=== PATIENT | male | born 1960 | race African-American/Black ===

== ENCOUNTER 2016-10-10 11:37 | Day surgery (SDC) | payer OTHER ==
[~2016-10-10] VITALS: Ht 175.3 cm; Wt 76.0 kg
[2016-10-10 12:30] VITALS: BP 179/104; PULSE 57; RESP 16; TEMP 98.4; O2SAT 97
[2016-10-10] MEDS ORDERED: LEXA10TA PO (12:54)
[2016-10-10] MEDS ORDERED: BUSP15TA PO (12:54)
[2016-10-10] MEDS ORDERED: HYDR12.57 PO (12:54)
[2016-10-10] MEDS ORDERED: VIAG50TA PO (12:54)
[2016-10-10] MEDS ORDERED: AMBI5TAB PO (12:54)
[2016-10-10] MEDS ORDERED: ATOR40TA16 PO (12:54)
[2016-10-10] MEDS ORDERED: ASPI81CH CHEW (12:54)
[2016-10-10] MEDS ORDERED: METO25TA3 PO (12:54)
[2016-10-10] MEDS ORDERED: LISI-515 PO (12:54)
[2016-10-10] MEDS ORDERED: POVIDONE IODINE 5% (ANTISEPSIS KIT) 4 APPLICATIONS EACH NARE PRN (13:00)
[2016-10-10] MEDS ORDERED: ceFAZolin 2 GM PREMIX 50 ML IV SCH (13:00)
[2016-10-10] MEDS ORDERED: POVIDONE IODINE 5% (ANTISEPSIS KIT) 4 APPLICATIONS EACH NARE SCH (13:00)
[2016-10-10] MEDS ORDERED: LACTATED RINGER'S 1000 ML IV PRN (13:00)
[2016-10-10] MEDS ORDERED: SODIUM CHLORID 0.9% 500 ML IV PRN (13:00)
[2016-10-10] MEDS ORDERED: NS 1000 ML IV SCH (13:00)
[2016-10-10] MEDS ORDERED: CHLORHEXIDINE GLUCONATE 2 % 1 PACK (2 CLOTHS) TOPICAL PRN (13:00)
[2016-10-10] MEDS ORDERED: LORazepam 1 MG TAB SL SCH (13:00)
[2016-10-10] MEDS ORDERED: METOPROLOL TARTRATE 25 MG TAB PO PRN (13:00)
[2016-10-10] MEDS ORDERED: MUPIROCIN 2% OINT 1 APPLIC/GM SYR NASAL SCH (13:00)
[2016-10-10] MEDS ORDERED: CHLORHEXIDINE GLUCONATE 2 % 1 PACK (2 CLOTHS) TOPICAL SCH (13:00)
[2016-10-10] MEDS ORDERED: VANCOMYCIN 1000 MG/NS 250 ML IV SCH ×2 (13:00)
[2016-10-10] MEDS ORDERED: INSULIN HUMAN REGULAR 1,000 UNITS/10 ML VIAL SQ PRN (13:00)
[2016-10-10 13:13] LABS: AUTOMATED NEUTROPHIL # 4.2 TH/MM3 (1.8-7.7); BASOPHIL # 0.1 TH/MM3 (0-0.2); BASOPHIL % 0.7 % (0.0-2.0); EOSINOPHIL # 0.2 TH/MM3 (0-0.4); EOSINOPHIL % 2.6 % (0.0-4.0); HEMATOCRIT 39.4 % (39.0-51.0); HEMO FLAGS DIFF FINAL; LYMPH % 34.9 % (9.0-44.0); LYMPHOCYTE # 2.7 TH/MM3 (1.0-4.8); MEAN CELL VOLUME 90.2 FL (80.0-100.0); MEAN CORPUSCULAR HGB CONC 32.1 % (32.0-36.0); MONO % 6.4 % (0.0-8.0); NEUT % 55.4 % (16.0-70.0); PLATELET COUNT 273 TH/MM3 (150-450); RED BLOOD COUNT 4.37 MIL/MM3 (4.50-5.90); RED CELL DISTRIBUTION WIDTH 14.4 % (11.6-17.2); WHITE BLOOD COUNT 7.6 TH/MM3 (4.0-11.0)
[2016-10-10 13:32] LABS: APTT (PATIENT) 31.5 SEC (24.3-30.1); PROTHROMBIN TIME - PATIENT 10.8 SEC (9.8-11.6)
[2016-10-10 13:33] LABS: POTASSIUM 4.2 MEQ/L (3.5-5.1)
[2016-10-10] MEDS ORDERED: MIDAZOLAM HCL 2 MG/2 ML VIAL ONE (19:10)
[2016-10-10] MEDS ORDERED: IODIXANOL 320 MG/ML 50 ML VIAL (for EPS) IV ONE (19:25)
[2016-10-10] MEDS ORDERED: VANCOMYCIN 500 MG VIAL ONE (19:27)
[2016-10-10] MEDS ORDERED: LIDOCAINE HCL 2% 50 ML VIAL ONE (19:28)
--- NOTE | 2016-10-10 20:50 | CATHPROC ---
[facility] HIS Report Study Information Study Number Admission Scheduled Start Study Start [id number] Oct 10 2016 11:37AM 10/10/2016 Oct 10 2016 7:26PM [place] [facility] Cardiac Pacer/ICD Admit Source Facility Department Other [facility] - Associate Professor Of Physics Physician and Clinical Staff Initial Frantz Brooks Per Diem Rn Eunice Dominguez RCIS Other Anesthesia, SMALL ANIMAL CARETAKER Recorder Hilaria Arce BSRPastor ScrAz Ventura,RT(R) Procedures Performed Procedure Location (Site) Vessel Name Lead Insertion Venogram Subclav. Vein (Lft Subclavian Vein Wire insertion Subclav. Vein (Lft Subclavian Vein Equipment Time Quality Head Description Size Mfg Part Number Used/Scraped documistic 20:25 SHEATH, FR8 11CM FR 8 11CM [id number] Used INC. 20:28 BIOTRONIK LEAD, LINOX SMART S DX 65/15 * [id number] Used WIRE, GUIDE AMPLATZ STIFF [id number] 20:22 COOK/PACER 3MMJ Used 180CM *[id number] DERMABOND, ADHESIVE SKIN [id number] 19:40 CORDIS/PACER * Used GLUE MINI *[id number] WIRE, HYDROSTEER 150CM [id number] 20:05 DAIG/[facility] 150CM Used ANGLED GLIDE *[id number] ENDOVASCULAR CATHETER, FR5 TRAILBLAZER [id number] 20:15 90CM Used COMPANY .035 *[id number]-1103 19:40 MEDLINE INDUSTRIES SUTURE, STRIP PLUS 1/2" * Used *[id number] 19:40 MEDLINE PACER ABREU, LIMB * 2530 *[id number] Used [id number] 19:40 MEDLINE PACER PACK, PACER CUSTOM * Used *[id number] QC7560 20:12 [employer]RU 30 SHAHEEN INDEFLATOR Used *[id number] 20:25 [employer].RU PACER SAFE SHEATH, LONG, FR8, 25CM FR 8 [id number] Used 20:41 Needle Sponge Count 2 22 Used 20:45 Needle Sponge Count 2 22 Used 19:50 Needle Sponge Count 2 22 Used 19:50 Needle Sponge Count 20 200 Used 20:45 Needle Sponge Count 20 200 Used 20:41 Needle Sponge Count 20 200 Used 20:40 Needle Sponge Count 3 3 Used 19:49 Needle Sponge Count 3 3 Used 20:42 Needle Sponge Count 4 4 Used 20:45 Needle Sponge Count 4 4 Used 20:48 NYCOMED OMNIPAQUE, 350 MG, 50ML 50ML [id number] Used SUTURE, 0 ETHIBOND [CT1] (CX21D), 8pk SUTURE, 2-0 VICRYL [CT1] ([id number]) SUTURE, 2-0 VICRYL [CT1] (HKH569A) [id number] 19:40 PAINTER MEDICAL BLANKET,WARM AIR CCL * Used *[id number] 138699 20:05 [facility] SHEATH, EPS, FR5 FAST CATH FR 5 Used *[id number] [facility] PAD, ELECTROSURGICAL 19:40 * [id number] *[id number] Used SURGICAL GROUNDING ORANGE 19:54 VITATRON MEDTRONIC PLASMABLADE, PEAD 3.0S * [id number] Used [id number] 19:40 Infer FABIENNE. ELECTRODE, PRO-PADZ BIPHASIC * Used *[id number] Equipment Model, Serial, Lot Number and Expiration Data Description Model Number Serial Number Lot Number Expiration Date LEAD, LINOX SMART S DX 65/15 [id number] 07-05-2018 History: Allergies Allergy Reaction NKDA History: Risk Factors Hypertension Dyslipidemia Previous Heart Failure Yes Yes Yes History: Symptoms/Diagnosis Selection Items Palpitations Labs Hgb (g/dl) Hct (%) RBC (MIL/MM3) WBC (l/cumm) Platelets (thousands) 11.60-17.00 35.00-51.00 4.00-5.90 4.00-11.00 150.00-450.00 12.7 39.4 4.3 7.6 273 Glucose (mg/dl) BUN (mg/dl) Creatinine (mg/dl) BUN:Creatinine (1:x) 74.00-106.00 7.00-18.00 0.50-1.30 10.00-20.00 80 15 1.3 11.5 Na (meq/l) K (meq/l) 136.00-145.00 3.50-5.10 141 4.2 INR (PTT:PT) 0.90-1.10 1 Medication Medication Total Dose (Bolus/Oral) Medication Total Dosage/Unit 2% XYLOCAINE 50 mL Medications (Bolus/Oral) Medication Time Given Dosage/Unit Administered By Reason 2% XYLOCAINE 10/10/2016 7:55:27 PM 50 mL Anesthesia, SMALL ANIMAL CARETAKER As per physicians chelly bal order 50 mL 2% XYLOCAINE given in lab by Anesthesia, SMALL ANIMAL CARETAKER via Subcutaneous. Ordered by Frantz Moran. Reaso n: As per physicians verbal order. left upper chest Medication (Drip) Medication Time Given Dosage/Unit Concentration/Unit Diluent (ml) Solution ANCEF 10/10/2016 7:30:00 PM 2 g 2 g ANCEF given in lab by Anesthesia, SMALL ANIMAL CARETAKER in Right Forearm via Peripheral IV. Ordered by Neto Moran. Reason: As per physicians verbal order. IV Solutions 10/10/2016 7:41:31 PM 0 mL (IV) NaCl .9 IV Solutions given in lab by Anesthesia, SMALL ANIMAL CARETAKER in Left Forearm via Peripheral IV. Pump/Drip Flow = 50 ml/hr using NaCl .9. Ordered by Frantz Moran. Reason: As per physicians verbal order. IV Solutions 10/10/2016 7:41:59 PM 0 mL (IV) NaCl .9 IV Solutions given in lab by Anesthesia, SMALL ANIMAL CARETAKER in Left Forearm via Peripheral IV. Pump/Drip Flow = 50 ml/hr using NaCl .9. Ordered by Frantz Moran. Reason: As per physicians verbal order. VANCOMYCIN DRIP 10/10/2016 7:30:05 PM 1 g 1 g VANCOMYCIN DRIP given in lab by Anesthesia, SMALL ANIMAL CARETAKER in Right Forearm via Peripheral IV. Ordered by Frantz Daniels. Reason: As per physicians verbal order. Initial Case Assessment Cardiovascular HR NIBP Chest Pain 54 150/91 0 Edema Present Skin color Skin None Normal Warm Dry Neurological State Oriented to time-place- Alert Moves all extremities person Respiration - General Respiration Rate SpO2 (%) (B/min) 18 97 Final Case Assessment Cardiovascular HR NIBP 64 121/78 Edema Present Skin color Skin None Normal Warm Dry Neurological State Oriented to time-place- Alert Moves all extremities person Respiration - General Respiration Rate SpO2 (%) (B/min) 18 99 Chronological Log Time Study Chronological Log 19:25:42 Patient arrived via Bed. 19:25:44 Patient Name, D.O.B, / Armband Verified By R.N. 19:25:46 Consent signed by the physician and the patient and verified by the Associate Professor Of Physics staff. 19:25:47 Pre-op and post- op instructions given; patient acknowledges understanding of instruction s. 2 g ANCEF given in lab by Anesthesia, SMALL ANIMAL CARETAKER in Right Forearm via Peripheral IV. Ordered by Frantz Moran. Reason: As 19:30:00 per physicians verbal order. 1 g VANCOMYCIN DRIP given in lab by Anesthesia, SMALL ANIMAL CARETAKER in Right Forearm via Peripheral IV. Ordere d by Frantz Moran. 19:30:05 Reason: As per physicians verbal order. 19:34:51 Verbal Stimulation=2 Physical Stimulation=2 Airway=2 Respiration=2 TOTAL=10. (0=absent, 1=l imited, 2=present) 19:40:09 Anesthesia at bedside. Assumes care of patient. Alexandrea SMALL ANIMAL CARETAKER 19:40:20 Presedation assessment performed by Associate Professor Of Physics RN. 19:40:22 Patient has been NPO for More than 6Hrs. 19:40:24 Skin Breakdown- none 19:40:30 Patient Warmer Placed on the Table. 19:40:32 Disposable Defibrillator Pads Placed On Patient. 19:40:36 Sarah Prominences Protected 19:40:39 A # 20 IV was noted in the Forearm (left). Grade = ~GRADE~ 19:40:56 A # 20 IV was noted in the Forearm (right). Grade = ~GRADE~ IV Solutions given in lab by Anesthesia, SMALL ANIMAL CARETAKER in Left Forearm via Peripheral IV. Pump/Drip Flow = 50 ml/hr using NaCl 19:41:31 .9. Ordered by Frantz Moran. Reason: As per physicians verbal order. IV Solutions given in lab by Anesthesia, SMALL ANIMAL CARETAKER in Left Forearm via Peripheral IV. Pump/Drip Flow = 50 ml/hr using NaCl 19:41:59 .9. Ordered by Frantz Moran. Reason: As per physicians verbal order. 19:42:20 History and physical on the chart or being dictated. Assessment: Initial Case, HR=54 BPM, SUSN=342/91 mmhg, Chest Pain=0, Edema=None, Color=Normal, Skin = Warm, Dry 19:42:50 Neurological: State=Alert, Ox3, HOFF Respiration: Resp=18 B/min, SpO2=97 % 19:43:25 Table restraints applied according to hospital policy 19:43:27 Left Upper Chest Prepped Times Two. 19:43:39 Bovie ground pad applied to: right hip 19:43:47 2% CHLORHEXIDINE GLUCONATE WASH AND NASAL SWIPE DONE PRIOR TO PROCEDURE. First Sponge And Instrument Count Done by Eunice Dominguez RCIS. 19:48:37 Hypo's: 3, Sponges: 20, Bovie/scratch: 2 Sutures: 11, Blades: 1, Instruments: 26, Syveck Patches: ~SYVECK PATCH~ 19:49:00 Immediate Presedation assesment performed by physician. Time Out. Correct patient, procedure, procedure equipment, site and side verified with physicia n present. Time 19:50:00 concurred by MD, individual staff and SMALL ANIMAL CARETAKER. Time Out #2 - Consents verified, patient in correct position, all results are labled and displa yed, safety precautions 19:50:00 taken, antibiotics administered. Time out concurred by MD, individual staff and SMALL ANIMAL CARETAKER in procedu re 19:50:10 Case Start 50 mL 2% XYLOCAINE given in lab by Anesthesia, SMALL ANIMAL CARETAKER via Subcutaneous. Ordered by Frantz Moran. Reason: As per 19:55:27 physicians verbal order. left upper chest 19:56:17 Surgical Incision Made. 19:56:51 A device was explanted. 20:00:34 Vascular access was obtained in the Subclav. Vein (Lft. 20:10:00 The Subclav. Vein (Lft was manually injected with 10 cc's of contrast. OMNIPAQUE, 350 MG, 5 0ML 50ML used. 20:15:15 A CATHETER, FR5 TRAILBLAZER .035 90CM was advanced over a wire. contrast was used for injec tions. 20:18:18 [place] catheter removed. 20:21:59 Trailblazer removed. 20:22:40 Reference ECG taken 20:23:20 A WIRE, GUIDE AMPLATZ STIFF 180CM 3MMJ was inserted via Subclav. Vein (Lft. 20:25:32 A SAFE SHEATH, LONG, FR8, 25CM FR 8 was advanced into the Subclav. Vein (Lft using the Perc utaneous technique. 20:29:10 A LEAD, LINOX SMART S DX 65/15 * was inserted and positioned in the RV. 20:29:21 Lead placement verified under fluoroscopy 20:29:24 The RV lead impedance and threshold being tested. 20:29:27 The RV lead was sutured to the fascia. 20:29:37 Old lead capped. 20:36:53 Reconnecting device. 20:37:25 Pocket flushed with antibiotic solution Second Sponge And Instrument Count Done by Eunice Dominguez RCIS. 20:39:58 Hypo's: 4, Sponges: 20, Bovie/scratch: 2 Sutures: ~SUTURE~, Blades: 1, Instruments: ~INSTRU~, Syveck Patches: ~SYVECK PATCH~ 20:40:00 The pocket was closed. 20:41:03 Implant Procedure was performed. 20:41:13 A ICD Implant . (Dual) new defib lead placed. 20:43:53 Bedside Report will be given. 20:44:02 Steri-strips and a sterile dressing applied to site. The Final Sponge And Instrument Count Done by Eunice Dominguez RCIS. 20:44:40 Hypo's: 4, Sponges: 20, Bovie/scratch: 2 Sutures: 11, Blades: 1, Instruments: 26, Syveck Patches: 0 20:45:12 A sling was placed on the affected arm. Assessment: Final Case, HR=64 BPM, XHIN=612/78 mmhg, Edema=None, Color=Normal, Skin = Warm, Dry 20:45:21 Neurological: State=Alert, Ox3, HOFF Respiration: Resp=18 B/min, SpO2=99 % 20:46:07 No case complications noted. 20:46:14 Cine recording checked. 20:46:23 Holding Area notified of successful intervention. 20:46:33 Contrast Scanned 20:46:34 Defibrillator and ground pads removed. Skin intact. 20:49:14 A sling was placed on the affected arm. 20:49:38 Case End 21:00:00 Patient moved to [facility] and transported to [facility] in stable condition. End Study - Contrast Media Used In Study Contrast Total Opened (mL) Total Used (mL) Total Wasted (mL) Omnipaque 50 10 40 End Study - Maximum Contrast Load Max Contrast Load (mL) 294.6 End Study - Radiation Exposure Fluoro Time (minutes) 13.1 End Study - Patient Disposition Complications Transferred To Interventional Outcome No Telemetry Bed successful
[2016-10-10] MEDS ORDERED: ONDANSETRON HCL 4 MG/2 ML VIAL IV PRN (21:00)
[2016-10-10] MEDS ORDERED: TEMAZEPAM 15 MG CAP PO PRN (21:00)
[2016-10-10] MEDS ORDERED: MAGNESIUM HYDROXIDE SUSP 30 ML CUP PO PRN (21:00)
[2016-10-10] MEDS ORDERED: ATORVASTATIN 40 MG TAB PO SCH (21:00)
[2016-10-10] MEDS ORDERED: ACETAMINOPHEN/CODEINE 300 MG/30 MG TAB PO PRN (21:00)
[2016-10-10 21:33] VITALS: BP 155/99; PULSE 55; RESP 18; TEMP 97.2; O2SAT 99
[2016-10-10 22:00] VITALS: PULSE 56
[2016-10-10] MEDS: ACETAMINOPHEN/CODEINE 300 MG/30 MG TAB PO PRN (22:10)
[2016-10-10] MEDS: busPIRone HCL 5 MG TAB PO SCH (22:10)
--- NOTE | 2016-10-10 22:32 | RADRPT ---
EXAM DATE/TIME: 10/10/2016 21:48 [place] COMPARISON: No previous studies available for comparison. INDICATIONS : Post pacemaker placement. MEDICAL HISTORY : None. SURGICAL HISTORY : Pacemaker. ENCOUNTER: Initial ACUITY: 1 day PAIN SCORE: 0/10 LOCATION: Bilateral chest FINDINGS: A single view of the chest demonstrates the lungs to be symmetrically aerated without evidence of mas s, infiltrate or effusion. No pneumothorax. Pacer leads overlie right ventricle. The cardiomediastina l contours are mildly prominent. Osseous structures are intact. CONCLUSION: 1. Pacer leads overlie right ventricle. Tortuous aorta. No focal consolidation or effusion. No pneumo thorax. Cody Sidhu MD on October 10, 2016 at 22:30 Board Certified Radiologist. This report was verified electronically.
[2016-10-10 23:00] VITALS: PULSE 57
[2016-10-10] MEDS: ceFAZolin 2 GM PREMIX 50 ML IV SCH (23:07)
[2016-10-10 23:30] VITALS: BP 148/89; PULSE 50; RESP 12; TEMP 97.6; O2SAT 97
[2016-10-11] VITALS (11 sets, daily range): BP systolic 134–145; BP diastolic 82–96; PULSE 54–77; RESP 14–18; TEMP 97.9–98.1; O2SAT 96–98
[2016-10-11] MEDS: ACETAMINOPHEN/CODEINE 300 MG/30 MG TAB PO PRN ×2 (02:35→08:21)
[2016-10-11] MEDS: busPIRone HCL 5 MG TAB PO SCH (08:20)
[2016-10-11] MEDS: ceFAZolin 2 GM PREMIX 50 ML IV SCH (08:21)
[2016-10-11] MEDS ORDERED: METOPROLOL TARTRATE 25 MG TAB PO SCH (09:00)
[2016-10-11] MEDS ORDERED: ASPIRIN 81 MG CHEW TAB CHEW SCH (09:00)
[2016-10-11] MEDS ORDERED: ESCITALOPRAM OXALATE 10 MG TAB PO SCH (09:00)
[2016-10-11] MEDS ORDERED: LISINOPRIL 20 MG TAB PO SCH (09:00)
[2016-10-11] MEDS ORDERED: HYDROCHLOROTHIAZIDE 12.5 MG CAP PO SCH (09:00)
--- NOTE | 2016-10-11 09:50 | HHI.PR ---
Subjective Remarks Feeling ok Objective Vital Signs Date Time Temp Pulse Resp B/P (MAP) Pulse Ox O2 Delivery O2 Flow Rate FiO2 10/11/16 09:30 18 10/11/16 09:29 77 10/11/16 08:00 66 10/11/16 07:35 98.1 56 18 145/96 (112) 98 10/11/16 07:35 56 10/11/16 06:00 54 10/11/16 05:00 56 10/11/16 04:00 56 10/11/16 03:00 97.9 58 14 134/82 (99) 96 10/11/16 03:00 58 10/11/16 02:00 64 10/11/16 01:00 62 10/11/16 00:00 54 10/10/16 23:30 97.6 50 12 148/89 (108) 97 10/10/16 23:00 57 10/10/16 22:00 56 10/10/16 21:33 97.2 55 18 155/99 (117) 99 10/10/16 12:30 98.4 57 16 179/104 (129) 97 I/O 10/10/16 10/10/16 10/10/16 10/11/16 10/11/16 10/11/16 07:00 15:00 23:00 07:00 15:00 23:00 Intake Total 830 ml Output Total 525 ml Balance 305 ml Intake Oral 480 ml IV Total 350 ml Output Urine Total 525 ml Result Diagram: 10/10/16 1230 10/10/16 1230 Imaging Alert, fully oriented Lungs: ventilated Heart: S1, S2 regular Clean surgical wound Abdomen: soft, no mass Ext: no edema Last Impressions Chest X-Ray 10/10/16 0000 Signed Impressions: Service Date/Time: Monday, October 10, 2016 21:48 - CONCLUSION: 1. Pacer leads overlie right ventricle. Tortuous aorta. No focal consolidation or effusion. No pneumothorax. Cody Sidhu MD Current Medications Medications (Trade) Dose Ordered Sig/Eduardo Route Start Time Stop Time Status Last Admin Lactated Ringer's 1,000 ml @ 30 mls/hr Q24H PRN IV 10/10/16 13:00 10/13/16 12:59 Sodium Chloride 500 ml @ 30 mls/hr [id number] PRN IV 10/10/16 13:00 10/13/16 12:59 (Lopressor) 25 mg EMAIL SPECIALIST PRN PO 10/10/16 13:00 10/13/16 12:59 (Betadine 5% Antisepsis Kit) 1 applic EMAIL SPECIALIST PRN EACH NARE 10/10/16 13:00 10/13/16 12:59 (Chlorhexidine 2% Cloth) 3 pack EMAIL SPECIALIST PRN TOPICAL 10/10/16 13:00 10/13/16 12:59 (NovoLIN R INJ) See Protocol Table ... EMAIL SPECIALIST PRN SQ 10/10/16 13:00 10/13/16 12:59 Sodium Chloride 1,000 ml @ 30 mls/hr Q24H IV 10/10/16 13:00 (Ativan) 1 mg EMAIL SPECIALIST SL 10/10/16 13:00 10/13/16 12:59 (Betadine 5% Antisepsis Kit) 2 applic EMAIL SPECIALIST EACH NARE 10/10/16 13:00 10/13/16 12:59 (Bactroban Nasal 2% Oint) 1 applic EMAIL SPECIALIST NASAL 10/10/16 13:00 10/13/16 12:59 (Chlorhexidine 2% Cloth) 3 pack EMAIL SPECIALIST TOPICAL 10/10/16 13:00 10/13/16 12:59 Cefazolin Sodium/ Dextrose 50 ml @ 100 mls/hr Q8H IV 10/11/16 00:00 10/11/16 16:29 10/11/16 08:21 (Restoril) 15 mg HS PRN PO 10/10/16 21:00 10/10/16 23:08 (Milk Of Magnesia Liq) 30 ml Q6H PRN PO 10/10/16 21:00 (Zofran Inj) 4 mg Q4H PRN IV 10/10/16 21:00 (Tylenol-Codeine #3) 1 tab Q4H PRN PO 10/10/16 21:00 (Tylenol-Codeine #3) 2 tab Q4H PRN PO 10/10/16 21:00 10/11/16 08:21 (Aspirin Chew) 81 mg DAILY CHEW 10/11/16 09:00 10/11/16 08:20 (Lipitor) 40 mg HS PO 10/10/16 21:00 10/10/16 22:09 (Buspar) 15 mg BID PO 10/10/16 21:00 10/11/16 08:20 (Lexapro) 10 mg DAILY PO 10/11/16 09:00 10/11/16 08:19 (Microzide) 12.5 mg DAILY PO 10/11/16 09:00 10/11/16 08:19 (Prinivil) 20 mg DAILY PO 10/11/16 09:00 10/11/16 08:20 (Lopressor) 25 mg DAILY PO 10/11/16 09:00 10/11/16 08:20 Assessment and Plan Problem List: (1) Ventricular tachyarrhythmia ICD Codes: I47.2 - Ventricular tachycardia Plan: No new episode reported (2) ICD (implantable cardioverter-defibrillator) in place ICD Codes: Z95.810 - Presence of automatic (implantable) cardiac defibrillator Plan: Device well functioning Clean surgical wound New Defib lead Can be DH Follow up as scheduled Frantz Moran MD Oct 11, 2016 09:50
[2016-10-11] MEDS ORDERED: CEPH-460 PO (09:56)
[2016-10-11] MEDS ORDERED: HYDR-3366 PO (09:56)
--- NOTE | 2016-10-11 14:30 | EKG ---
Date Performed: 10/10/2016 Time Performed: 13:11:50 PTAGE: 55 years EKG: Sinus bradycardia. Septal ST-T changes are nonspecific Borderline ECG NO PREVIOUS TRACING DOCTOR: Gabe Hernandez Interpretating Date/Time 10/11/2016 14:29:25
--- NOTE | 2016-10-11 18:02 | EKG ---
Date Performed: 10/10/2016 Time Performed: 22:44:40 PTAGE: 55 years EKG: Sinus bradycardia leading into accelarated idioventricular rhythm. Prolonged QT interval Co mpared to previous tracing accelerated idioventricular rhythm Borderline ECG PREVIOUS TRACING : 10/10/2016 13.11 DOCTOR: Gabe Hernandez Interpretating Date/Time 10/11/2016 18:00:51
--- NOTE | 2016-10-15 17:22 | MP ---
cc: CAROLA PAINTER M.D. DATE OF SURGERY PROCEDURE 1. Defibrillator removal. 2. New right ventricular defibrillatory lead insertion. INDICATION Mr. Roldan is a 55-year-old, -Maced[place] gentleman. history of sudden , normal ejection fraction, ___ defibrillator implanted, right ventricular lead malfunction. There is no capture and sensing in the right ventricular pacing sensing defibrillatory lead. Decision for new RV defibrillatory replacement was taken. The risks, the nature and the benefit of the procedure are clearly stated to him. The risks include pneumothorax, cardiac perforation, stroke and even . He understood and agreed to proceed. DESCRIPTION OF PROCEDURE After written informed consent was obtained, the patient was brought to the EP lab where he was prepped and draped in the usual sterile fashion. Conscious sedation was initiated and maintained throughout the procedure by anesthesiologist. Once sedation verified, the left infraclavicular area over the existing generator was anesthetized with 2% Xylocaine. Using a #11 blade scalpel, a 3-cm incision was made over the existing generator. This incision was then taken down to the fascial layer using Bovie cautery and blunt dissection. Once exposed, the generator was removed from the pocket. Scar tissue was removed around the lead, pocket was expanded. Pocket revision was performed. Then using modified Seldinger technique, the left subclavian vein was cannulated on one occasion, one guidewire was advanced. I was unable to advance the guidewire through the medial portion of the left subclavian vein. At this point, I did advance a 5-Belarusian dilator over the wire. A Glidewire was advanced. I was unable to cross. At this point, I proceeded with venography. 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 At this point, I did advance a Quick-cross over the Glidewire. After multiple manipulation of the Glidewire, I was able to cross the occlusion. Subsequently, the Quick-cross was advanced, all the way through the inferior vena cava. Over the Quick-cross, I did exchange the Glidewire for a 6 Amplatz. Then, I progressively dilated the occlusion. Subsequently, over the wire, an 8-Belarusian dilator and introducer was advanced. As dilator and wire were removed, an active fixation right ventricular pacing sensing defibrillatory lead was advanced. After adequate pacing and sensing threshold obtained, the lead was secured in the pocket with #2 Ethibond suture. At that point, the pocket was copiously irrigated with antibiotic solution. The existing right ventricle pacing sensing defibrillatory was unscrewed, the ___ was cut and the rest of the lead was capped and left into the pocket. I did connect the defibrillator to the new lead and placed into the pocket. I did proceed with wound closure. The deep fascial layer was approximated using #2-0 Vicryl suture in a continuous fashion. The subcutaneous layer was approximated using #2-0 Vicryl suture in a continuous fashion. The subcuticular layer was approximated using #2-0 Vicryl suture in a continuous fashion. Dermabond adhesive was applied to the wound followed by a sterile pressure dressing. There were no complications. The patient tolerated procedure; blood loss minimal. IMPLANTED HARDWARE The implanted right ventricular pacing sensing defibrillatory lead is a Cswitchronik, model number [id number], serial number [id number]. For information about generator and lead, please refer to previous dictation. THRESHOLD The right ventricular pacing sensing threshold in bipolar mode was one volt at 0.5 milliseconds. Lead impedance 725 ohms, R-wave at 20.5 mV. Sensing P-wave is 12.2 mV. SETTING The device in a VVI. Defibrillatory ___ portion for two zone; one zone for ventricular tachycardia between 180-250 beats per minute. Initial therapy consists of one burst of ATP, one ramp 81%,10 pause, 70 second incremental, followed by 20, then 30, and subsequent shocks at 40 joule defibrillatory shock. Second zone for ventricular fibrillation above 240 beats per minute. First therapy at 30 and all subsequent shocks at 40 defibrillatory shock. CONCLUSION Successful defibrillator removal, new right ventricular defibrillatory lead insertion. COMMENT/RECOMMENDATIONS The patient going to be transferred to recovery room. He will be observed, when stable can be discharged home. Carola Painter MD HS/DT /3:11 PM /4:17 PM
== END 2016-10-11 11:08 | disposition home or self-care (01) ==
LOC: HCAT 11:37 → HDIC 11:44 → HCIN 21:12 → HCAT 10-11 11:08
PROVIDERS: ATTEND Internal Medicine Interventional Cardiology
DX: T82.190A Other mechanical complication of cardiac electrode, initial encounter (principal); R00.2 Palpitations; R53.83 Other fatigue; I49.01 Ventricular fibrillation; I10 Essential (primary) hypertension; R79.1 Abnormal coagulation profile; Z87.891 Personal history of nicotine dependence; Z79.82 Long term (current) use of aspirin
CPT/HCPCS: 00530; 33216; 71010; 80048; 85025; 85610; 85730; 86850; 86900; 86901; 93005; C1777; J0690; J2250; J3010; J3370; J7050; Q9967